=== PATIENT | female | born 1945 | race Caucasian/White ===

== ENCOUNTER 2016-11-28 06:11 | Day surgery (SDC) | payer MEDICARE ==
[2016-11-28] MEDS ORDERED: Ondansetron INJ* 2 MG/ML VIAL IV ONE (06:34)
[2016-11-28] MEDS ORDERED: Morphine INJ* 2 MG/ML 1 ML SYRINGE IV ONE (06:34)
[2016-11-28] MEDS ORDERED: NS 0.9% 1000 ML* 1,000 ML IV ONE (06:34)
--- NOTE | 2016-11-28 07:00 | ED ---
Sean Galaviz Erika, scribed for Oscar Jain MD on 11/28/16 at 0650 . Abdominal Pain/Female - HPI Summary HPI Summary: Patient is a 71-year-old female presenting to the ED with a CC of RLQ pain. Patient reports that she developed abdominal pain on 11/26/2016 in the afternoon. Pt improved by the next morning, but worsened significantly by yesterday evening. Now, pain has localized to the RLQ. Associated symptoms include chills initially, and nausea still, but patient denies vomiting. She denies PSHx appendectomy. Pt is followed by Dr. Oleary. - History of Current Complaint Chief Complaint: EDAbdPain Stated Complaint: ABD PAIN Time Seen by Provider: 11/28/16 06:29 Hx Obtained From: Patient Onset/Duration: Gradual Onset, Lasting Days, Still Present Timing: Constant - now constant, earlier intermittent Severity Currently: Moderate Pain Intensity: 8 Pain Scale Used: 0-10 Numeric Location: Discrete At: RLQ Aggravating Factor(s): Other: - palpation Alleviating Factor(s): Nothing Associated Signs and Symptoms: Positive: Nausea, Other: - chills. Negative: Vomiting Allergies/Adverse Reactions: Allergies Allergy/AdvReac Type Severity Reaction Status Date / Time No Known Allergies Allergy Verified 11/28/16 06:24 Home Medications: Home Medications ValACYclovir (*) [Valtrex 500 mg (*)] 250 mg PO DAILY 11/28/16 [History Confirmed 11/28/16] PMH/Surg Hx/FS Hx/Imm Hx Musculoskeletal History: Reports: Hx of Fracture(s) - Sacrum - Cancer History Hx Chemotherapy: No Hx Radiation Therapy: No - Surgical History Surgery Procedure, Year, and Place: ectopic surgery Infectious Disease History: No Infectious Disease History: Denies: Traveled Outside the [place] in Last 30 Days - Family History Family History: Denies FHx breast CA - Social History Occupation: Employed Full-time Lives: With Family Review of Systems Positive: Chills Positive: Abdominal Pain, Nausea. Negative: Vomiting All Other Systems Reviewed And Are Negative: Yes Physical Exam Triage Information Reviewed: Yes Vital Signs On Initial Exam: Initial Vitals Temp Pulse Resp BP Pulse Ox 98.7 F 86 18 108/75 97 11/28/16 06:22 11/28/16 06:22 11/28/16 06:22 11/28/16 06:22 11/28/16 06:22 Vital Signs Reviewed: Yes Appearance: Positive: Well-Appearing, Pain Distress - mild discomfort Skin: Positive: Warm Head/Face: Positive: Normal Head/Face Inspection Eyes: Positive: CHAITANYA ENT: Positive: Hearing grossly normal Neck: Positive: Supple Respiratory/Lung Sounds: Positive: Clear to Auscultation, Breath Sounds Present Cardiovascular: Positive: RRR Abdomen Description: Positive: No Organomegaly, Soft, Guarding, McBurney's Point Tenderness - mild, Other: - mild rlq tenderness. Negative: Distended Bowel Sounds: Positive: Present Musculoskeletal: Positive: Strength/ROM Intact Neurological: Positive: Alert, Oriented to Person Place, Time Psychiatric: Positive: Affect/Mood Appropriate Diagnostics - Vital Signs Vital Signs Temp Pulse Resp BP Pulse Ox 11/28/16 06:22 98.7 F 86 18 108/75 97 - Laboratory Result Diagrams: 11/28/16 06:40 11/28/16 06:40 Lab Statement: Any lab studies that have been ordered have been reviewed, and results considered in the medical decision making process. Re-Evaluation - Re-Evaluation First Eval Re-Evaluation Time: 09:53 Comment: Labs and imaging results reviewed. Abdominal Pain Fem Course/Dx - Course Course Of Treatment: A 71 y/o F presents to the ED with a CC of abdominal pain which has localized over the past 2 days to the RLQ. Associated symptoms include chills and nausea, but pt denies vomiting. CT A/P W/, blood work, zofran , IV fluids, and morphine ordered. Pt to be signed out to Dr. Guadalupe at shift change pending full work up. - Diagnoses Provider Diagnoses: Acute appendicitis Discharge - Discharge Plan Condition: Stable Disposition: ADMITTED TO [facility] Discharge Disposition Comment: Signed out to Dr. Guadalupe pending labs, CT A/P, disposition The documentation as recorded by the Sean dunne Erika accurately reflects the service I personally performed and the decisions made by me, Oscar Jain MD.
[2016-11-28 07:02] LABS: Hematocrit 39 % (35-47); Hemoglobin 12.9 g/dl (12.0-16.0); Mean Corpuscular HGB Conc 33 g/dl (31-36); Mean Corpuscular Hemoglobin 29 pg (27-31); Mean Corpuscular Volume 89 fL (80-97); Mean Platelet Volume 9 um3 (7.4-10.4); Red Blood Count 4.41 10^6/ul (4.0-5.4); Red Cell Distribution Width 13 % (10.5-15); White Blood Count 14.1 10^3/ul (3.5-10.8)
[2016-11-28 07:16] LABS: Albumin 4.4 g/dL (3.2-5.2); C Reactive Protein 16.86 mg/L (< 5.00); EGFR African American 98.5 (>60); EGFR Non-African American 76.6 (>60); Globulin 2.4 g/dL (2-4); Magnesium 1.9 mg/dL (1.9-2.7); Potassium 3.3 mmol/L (3.5-5.0); Total Bilirubin 1.5 mg/dL (0.2-1.0); Total Protein 6.8 g/dL (6.4-8.9)
[2016-11-28] MEDS ORDERED: Iohexol 300* (CONTRAST) 10 ML SDV IV ONE (08:08)
[2016-11-28 08:48] LABS: Urine Bacteria Absent (Absent); Urine Bilirubin Negative (Negative); Urine Glucose Negative (Negative); Urine Nitrite Negative (Negative)
--- NOTE | 2016-11-28 09:24 | RAD ---
INDICATION: Right lower quadrant abdominal pain. COMPARISON: There are no prior studies available for comparison. TECHNIQUE: A CT scan of the abdomen and pelvis was performed with intravenous and oral contrast following intravenous injection of 71 ml of Omnipaque 300 nonionic contrast. Contiguous axial sections were obtained from the lung bases through the symphysis pubis. Images were reconstructed in the coronal and sagittal planes. FINDINGS: There is mild dependent bilateral lower lobe subsegmental atelectasis. No pleural effusion is present. The liver is slightly enlarged. There are 2 hypodense lesions present within the liver. One is located along the superior posterior aspect of the right hepatic lobe and the other is located centrally within the liver. These measure 1.5 x 1.0 and 3.3 x 3.6 cm in size. There is suggestion of discontinuous peripheral nodular enhancement suggestive of hemangiomas although nonspecific. No intra or extrahepatic ductal distention is seen. No calcified gallstones are noted. The spleen is within normal limits in size without focal abnormality. The pancreas appears to be within normal limits. The kidneys and adrenal glands are normal in size. No hydronephrosis is seen. There is a 1.6 cm cyst present in the midportion of the left kidney. The aorta is normal in caliber and demonstrates homogeneous contrast opacification. No significant enlarged retroperitoneal lymph nodes are seen. The stomach, small and large bowel appear nondistended. The appendix is enlarged measuring 1.2 cm in transverse dimension with increased density and mild stranding in the adjacent fat most consistent with acute appendicitis. No abscess is seen. No free intraperitoneal air or fluid is noted. The uterus is normal in size. No adnexal abnormalities are seen. No significant focal osseous abnormality is seen. IMPRESSION: 1. FINDINGS MOST CONSISTENT WITH ACUTE APPENDICITIS. 2. HEPATIC LESIONS DESCRIBED MOST CONSISTENT WITH HEMANGIOMAS. RECOMMEND A FOLLOW-UP MRI OF THE ABDOMEN FOR FURTHER CHARACTERIZATION.
[2016-11-28] MEDS ORDERED: ceFAZolin 2 GM PREMIX(*) 2 GM/50 ML BAG IVPB ONE (12:01)
[2016-11-28] MEDS ORDERED: metroNIDAZOLE IV 500 MG/100ML* 500 MG/100 ML BAG IVPB ONE (12:01)
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
[2016-11-28] MEDS ORDERED: Bupivacaine 0.5% W/EPI SDV* 30 ML VIAL ONE (13:07)
[2016-11-28] MEDS ORDERED: Lidocaine 2% PF * 5 ML VIAL ONE (13:19)
[2016-11-28] MEDS ORDERED: Dexamethasone IV* 4 MG/ML 1 ML (4 MG) ONE (13:19)
[2016-11-28] MEDS ORDERED: Succinylcholine* 20 MG/ML 10 ML VIAL ONE (13:19)
[2016-11-28] MEDS ORDERED: Propofol* 10 MG/ML 20 ML BTL IV PUSH ONE (13:19)
[2016-11-28] MEDS ORDERED: fentaNYL* 50 MCG/ML 2 ML VIAL (100 MCG VIAL) ONE ×2 (13:19→15:12)
[2016-11-28] MEDS ORDERED: EPHEDrine (Pressors)* 50 MG/ML VIAL ONE (14:02)
[2016-11-28] MEDS ORDERED: DiMENhydriNATE IV* 50 MG/ML VIAL IV PUSH PRN (14:03)
[2016-11-28] MEDS ORDERED: Ketorolac INJ* 30 MG/ML 1 ML VIAL IV PRN (14:03)
[2016-11-28] MEDS ORDERED: Ibuprofen TAB* 600 MG PO PRN (14:23)
[2016-11-28] MEDS ORDERED: oxyCODONE/Acetamin 5/325 MG* TAB PO PRN ×2 (14:23)
[2016-11-28] MEDS ORDERED: DiMENhydriNATE IV* 50 MG/ML VIAL ONE (14:36)
[2016-11-28] MEDS: fentaNYL* 50 MCG/ML 2 ML VIAL (100 MCG VIAL) IV PRN ×2 (15:12→15:33)
[2016-11-28] MEDS ORDERED: Ketorolac INJ* 30 MG/ML 1 ML VIAL ONE (15:44)
--- NOTE | 2016-11-28 16:00 | SURGPN ---
Brief Operative Note - Surgery Procedures: PREOP/POSTOP DX: ACUTE APPENDICITIS. PROC: LAPAROSCOPIC APPENDECTOMY SURG: MECENAS ASSIST: NONE ANES: GET; BYLEBYL EBL: <20 ML IVF: 600ML SPEC: APPENDIX DRAIN: NONE COMPL: NONE COND: STABLE TO RR EXTUBATED.
[2016-11-28 16:18] VITALS: BP 133/73
--- NOTE | 2016-11-28 17:59 | ED ---
Leonid Galaviz Billy, scribed for Chip Guadalupe MD on 11/28/16 at 0804 . Progress - Progress Note Progress Note: Patient was signed out by Dr. Jain at shift change pending labs and imaging results. She reports RLQ pain which is better when she is resting in the stretcher. PHYSICAL EXAM: VITAL SIGNS: Reviewed. GENERAL: Patient is a well-developed and nourished female who is lying comfortable in the stretcher. Patient is not in any acute respiratory distress. HEAD AND FACE: Normocephalic and atraumatic. EYES: PERRLA, EOMI x 2, No injected conjunctiva. EARS: Hearing grossly intact. Ear canals and tympanic membranes are WNL. MOUTH: Oropharynx within normal limits. NECK: Supple, trachea is midline, no adenopathy, no JVD. CHEST: Symmetric, no tenderness at palpation LUNGS: Clear to auscultation bilaterally. No wheezing or crackles. CVS: RRR, S1 and S2 present, no murmurs or gallops appreciated. ABDOMEN: Soft, positive tenderness to the RLQ. No signs of distention. Positive bowel sounds. No rebound no guarding, and no masses palpated. No abdominal bruit or pulsations. EXTREMITIES: FROM in all major joints, no edema, no cyanosis or clubbing. NEURO: Alert and oriented x 3. No acute neurological deficits. Speech is normal. SKIN: Dry and warm - Results/Orders Results/Orders: CT abd/pel W: 1. FINDINGS MOST CONSISTENT WITH ACUTE APPENDICITIS. 2. HEPATIC LESIONS DESCRIBED MOST CONSISTENT WITH HEMANGIOMAS. RECOMMEND A FOLLOW-UP MRI OF THE ABDOMEN FOR FURTHER CHARACTERIZATION. Re-Evaluation - Re-Evaluation First Eval Re-Evaluation Time: 09:53 Comment: Labs and imaging results reviewed. Course/Dx - Course Course Of Treatment: Patient was signed out by Dr. Jain at shift change pending labs and imaging results and further disposition. She reports RLQ pain which is better when she is resting in the stretcher. CT of the abd/pel shows findings consistent with acute appendicitis. I discussed my physical exam findings with Dr. Real who accepted the patient for admission. The patient is hemodynamically stable, A&Ox3. - Diagnoses Provider Diagnoses: Acute appendicitis - Provider Notifications Discussed Care Of Patient With: Dr. Real (surgery) at 1015: accepts admission. Discharge - Discharge Plan Condition: Stable Disposition: ADMITTED TO [facility] The documentation as recorded by the Leonid dunne Billy accurately reflects the service I personally performed and the decisions made by me, Chip Guadalupe MD.
--- NOTE | 2016-11-28 23:49 | OP ---
OPERATIVE REPORT: DATE OF OPERATION: 11/28/16 - SDS DATE OF : 49 SURGEON: Dr. Real. COAL UNLOADER: None. ANESTHESIOLOGIST: Jerry Wolfe MD ANESTHESIA: General endotracheal. PRE-OP DIAGNOSIS: Acute appendicitis. POST-OP DIAGNOSIS: Acute appendicitis. OPERATIVE PROCEDURE: Laparoscopic appendectomy. ESTIMATED BLOOD LOSS: Minimal. IV FLUIDS: 600 mL crystalloids. SPECIMEN: Appendix. DRAINS: None. COMPLICATIONS: None. COUNTS: The instrument, needle, and sponge counts were correct. DESCRIPTION OF PROCEDURE: The patient was brought to the operating room and placed on table supine. Sequential compression devices were placed on both lower extremities. General anesthesia was administered. The abdomen was prepped and draped in the usual sterile fashion. Time-out was performed. Local anesthetic was infiltrated into the skin and soft tissue prior to making each incision. Entry to the abdomen was through an open technique accessing the peritoneal cavity to the umbilicus. A 12-mm trocar was placed and the carbon dioxide was insufflated to a pressure of 15 mmHg. Under direct visualization, 5-mm trocars were placed in the suprapubic midline and in left lower quadrant. The appendix was identified. It appeared to be dilated throughout the majority of its length. The tip was not dilated and the base did appear normal. The appendix was elevated. A window created in the appendiceal mesentery and then the appendix was divided from the cecum using the Endo PRINCESS stapler with the austin cartridge. Mesentery of the appendix was taken with the Endo PRINCESS stapler with byers cartridge. The appendix was placed into an endoscopic retrieval bag and retrieved through the umbilical site. Inspection revealed the staple lines to be intact and hemostasis was excellent. The ports were removed under direct visualization. Carbon dioxide was released. The umbilical incision was closed with 0 Polysorb in a figure-of- eight fashion. Skin incisions were closed with 4-0 Monocryl in subcuticular fashion. Steri-Strips were applied. The patient tolerated the procedure well, was extubated and transferred to recovery room in stable condition. CC: Annie Oleary MD* [id number]/[facility] #: [id number] MTDD
== END 2016-11-28 16:22 | disposition home or self-care (01) ==
LOC: ED 06:11 → OR 14:13
PROVIDERS: ATTEND Surgery
DX: K35.80 Unspecified acute appendicitis (principal)
CPT/HCPCS: 36415; 74177; 80053; 81003; 81015; 83605; 83690; 83735; 85025; 86140; 88304; 96374; 96375; 99283; C1776; J0330; J0690; J1100; J1240; J1885; J2270; J2405; J2704; J3010; Q9967

== ENCOUNTER 2017-03-02 12:45 | Emergency (ER) | payer MEDICARE ==
[2017-03-02 13:30] VITALS: BP 114/68
--- NOTE | 2017-03-02 15:07 | UC ---
Ear Complaint HPI - HPI Summary HPI Summary: pt woke this am with loss of hearing in rt ear. no pain. no other sx. during encounter i noted that pt has crocked smile(less active on the left) and asked if that was new. took pt to the bathroom to look at her face in the bathroom mirror. pt stated that there was nothing new about her smile or other features. - History of Current Complaint Chief Complaint: UCEar Stated Complaint: EAR ACHE Time Seen by Provider: 03/02/17 13:36 Hx Obtained From: Patient Onset/Duration: Sudden Onset, Lasting Hours, Still Present Severity Initially: Moderate Severity Currently: Moderate Pain Intensity: 0 Aggravating Factors: Nothing Alleviating Factors: Nothing Associated Signs/Symptoms: Positive: Hearing Loss. Negative: Discharge, Foreign Body Sensation, Trauma to Ear, Swelling @, URI Symptoms - Allergies/Home Medications Allergies/Adverse Reactions: Allergies Allergy/AdvReac Type Severity Reaction Status Date / Time No Known Allergies Allergy Verified 03/02/17 13:26 PMH/Surg Hx/FS Hx/Imm Hx Previously Healthy: Yes - Surgical History Surgical History: Yes Surgery Procedure, Year, and Place: ectopic surgery,appendectomy - Family History Known Family History: Negative: Cardiac Disease, Hypertension, Diabetes Family History: Denies FHx breast CA - Social History Occupation: Employed Full-time Lives: With Family Alcohol Use: Occasionally Substance Use Type: None Smoking Status (MU): Never Smoked Tobacco Review of Systems Constitutional: Negative Skin: Negative Eyes: Negative ENT: Other - see hpi Respiratory: Negative Cardiovascular: Negative Gastrointestinal: Negative Genitourinary: Negative Musculoskeletal: Negative Neurological: Negative All Other Systems Reviewed And Are Negative: Yes Physical Exam Triage Information Reviewed: Yes Appearance: Well-Appearing, No Pain Distress, Well-Nourished Vital Signs: Initial Vital Signs Temp 98.0 F 03/02/17 13:27 Pulse 83 03/02/17 13:27 Resp 16 03/02/17 13:27 BP 114/68 03/02/17 13:27 Pulse Ox 99 03/02/17 13:27 Vital Signs Reviewed: Yes Eyes: Positive: Conjunctiva Clear. Negative: Discharge ENT: Positive: Pharynx normal, TMs normal, Other: - jaw clicks wth ext/opening. small mass noted to be growing in ext auditory meatus. Negative: Nasal congestion, Nasal drainage, Tonsillar swelling, Tonsillar exudate, Trismus, Muffled/hoarse voice Neck: Positive: Supple, Nontender, No Lymphadenopathy Respiratory: Positive: Lungs clear, Normal breath sounds, No respiratory distress, No accessory muscle use Cardiovascular: Positive: RRR, No Murmur Neurological Exam: Normal Neurological: Positive: Alert, Muscle Tone Normal - aox4, strength, sensation and reflexes intact bl, cn 2-12 intact, no cerebellar signs, gait normal, Other : - aox4, cn2-12 intact(during conversation pt engages rt side more than left. however when testing facial nerve, pt can make smile symetrical. further, when pt when pt watched herself in the mirror, she did not see any difference in her features.), strength sensation and reflexes intact bl, no cerrebellar sign, gait within normal limits Psychological: Positive: Age Appropriate Behavior Skin Exam: Normal Diagnostics - Radiology No standard instances Xray Interpretation: Positive (See Comments) - ct temporal bones positive for exostosis of osseous portion of ext canal Radiology Interpretation Completed By: Radiologist Ear Complaint Course/Dx - Course Course Of Treatment: pt specifically requested follow up with dr lai. 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 Exostosis is the medical term for an abnormal growth of bone within the ear canal. It is more commonly referred to as swimmers or surfers ear. This common name derives from the fact that the most common cause of exostosis is frequent exposure to cold water, making this a condition that affects surfers at a higher rate than the average population. Exposure to wind and cold water causes the bone surrounding the ear canal to thicken and constrict the ear canal , sometimes to the point of complete blockage (known as occlusion) which can lead to substantial conductive hearing loss. An exostosis growth can result from any activity that exposes the participant to cold, wet and windy conditions such as skiing, kayaking, fishing, sailing or diving. Most patients who develop an exostois are in their mid-to-late 30s but those with significant cold water exposure such as surfers can develop the condition earlier. This is due to the slow progression of bone growth from years of cold weather exposure. Exostosis symptoms of include a decrease in hearing sensitivity possibly combined with an increased prevalence of ear infections. Early symptoms include water trapping in the ear canal after swimming. Sometime thereafter, debris trapping and infections make surgery necessary. Exostosis is most commonly treated by a surgical procedure to remove the growth. There are two different approaches to the surgery, the first uses a small incision behind the ear and the excess bone growth is removed using a surgical drill, and the second uses a drill to remove the bone growth from inside of the ear canal itself.. After the surgery, it is important for the patient to avoid any cold water activities for 2-6 weeks in order to prevent complications or infections. AT YOUR REQUEST, WE HAVE REFERRED YOU TO DR LAI OF ENT.
--- NOTE | 2017-03-02 15:07 | RAD ---
HISTORY: Possible tearing, right external auditory meatus mass COMPARISONS: None TECHNIQUE: Multiple contiguous axial CT scans of the temporal bones were obtained without intravenous contrast, with coronal and sagittal multiplanar reformations. FINDINGS: RIGHT: EXTERNAL CANAL: There is no CT findings correspond to the history of mass of the external auditory canal. There is exostosis of the osseous portion of the external canal. TYMPANIC MEMBRANE: The right tympanic membrane is not well visualized. OSSICLES: Normal. No erosion. WINDOWS: Normal. No narrowing. MIDDLE EAR: Normal. No abnormal soft tissue or fluid. The scutum is sharp. Prussak's space is clear. MASTOID: Normal. No fluid, sclerosis, or soft tissue abnormality. INNER EAR: Normal. FACIAL CANAL: Normal. No dehiscence. IAC: Normal. No expansion or asymmetry. JUGULAR FORAMEN: Normal. No expansion or erosion. CAROTID CANAL: Normal. No erosion LEFT: EXTERNAL CANAL: Normal. No stenosis or soft tissue abnormality. TYMPANIC MEMBRANE: Normal. No thickening or retraction. OSSICLES: Normal. No erosion. WINDOWS: Normal. No narrowing. MIDDLE EAR: Normal. No abnormal soft tissue or fluid. The scutum is sharp. Prussak's space is clear. MASTOID: Normal. No fluid, sclerosis, or soft tissue abnormality. INNER EAR: Normal. FACIAL CANAL: Normal. No dehiscence. IAC: Normal. No expansion or asymmetry. JUGULAR FORAMEN: Normal. No expansion or erosion. CAROTID CANAL: Normal. No erosion ADDITIONAL FINDINGS: The visualized brain and orbits are unremarkable. The visualized paranasal sinuses are clear. No other bone or soft tissue abnormalities are noted. IMPRESSION: EXOSTOSIS OF THE RIGHT EXTERNAL AUDITORY CANAL
== END 2017-03-02 15:51 | disposition home or self-care (01) ==
LOC: UCEAST 12:45
DX: H61.811 Exostosis of right external canal (principal)
CPT/HCPCS: 70480; 99212; G0463